=== PATIENT | female | born 1960 | race Asian ===

== ENCOUNTER 2019-04-26 15:40 | Emergency (ER) | payer OTHER ==
--- NOTE | 2019-04-26 15:52 | ED ---
Upper Extremity Pain - HPI Summary HPI Summary: 59 female presents to the emergency department this morning after falling on ice and landing on an out stretched hand. Pt endorses 4/10 pain to the left wrist which is made worse with movement. Pt states she has decreased range of motion due to pain but has full sensation of the hand. Pt is neruovascularly intact. Pt has not taken any medication prior to arrival. Pt does not take blood thinners. Pt denies fever, chest pain, abdominal pain, pain with urination , SOB, rash. Family hx and surgical hx noncontributory. - History of Current Complaint Chief Complaint: EDExtremityUpper Stated Complaint: FALL- POSS LEFT WRIST FRACTURE PER PT Time Seen by Provider: 04/26/19 15:45 Hx Obtained From: Patient Mechanism Of Injury: Fall From A Standing Position Onset/Duration: Started Hours Ago Timing: Constant Severity Initially: Moderate Severity Currently: Moderate Pain Location: Wrist Character: Aching Aggravating Factor(s): Movement, Lifting, Flexion, Extension, Internal/External Rotation, Abduction, Adduction, Twisting, Pulling Alleviating Factor(s): Rest, Elevation Associated Signs & Symptoms: Positive: Swelling, Bruising. Negative: Redness, Fever, Weakness, Numbness/Tingling, Chest Pain, SOB, Nausea, Vomiting - Allergies/Home Medications Allergies/Adverse Reactions: Allergies Allergy/AdvReac Type Severity Reaction Status Date / Time No Known Allergies Allergy Verified 04/26/19 16:38 PMH/Surg Hx/FS Hx/Imm Hx Infectious Disease History: No Infectious Disease History: Denies: Traveled Outside the [place] in Last 30 Days Review of Systems Constitutional: Negative Eyes: Negative ENT: Negative Cardiovascular: Negative Respiratory: Negative Gastrointestinal: Negative Genitourinary: Negative Positive: Arthralgia, Myalgia, Decreased ROM, Edema Negative: Rash Neurological: Negative Psychological: Normal All Other Systems Reviewed And Are Negative: Yes Physical Exam - Summary Physical Exam Summary: Pt is in no acute distress. gross deformity an ecchymosis is appreciated to the left wrist. ROM decreased to the left wrist due to pain. 2+ radial pulse with brisk cap refill, BL. Pt is neurovascularly intact. Triage Information Reviewed: Yes Vital Signs On Initial Exam: Initial Vitals Temp Pulse Resp BP Pulse Ox 97.9 F 80 14 157/94 96 04/26/19 15:44 04/26/19 15:44 04/26/19 15:44 04/26/19 15:44 04/26/19 15:44 Vital Signs Reviewed: Yes Appearance: Positive: Well-Appearing, No Pain Distress, Well-Nourished Skin: Positive: Warm, Skin Color Reflects Adequate Perfusion Head/Face: Positive: Normal Head/Face Inspection Eyes: Positive: EOMI, NITHIN ENT: Positive: Hearing grossly normal Respiratory/Lung Sounds: Positive: Clear to Auscultation, Breath Sounds Present Cardiovascular: Positive: RRR, S1, S2 Musculoskeletal: Positive: Edema Left Neurological: Positive: Sensory/Motor Intact, Alert, Oriented to Person Place, Time, Normal Gait, Facial Symmetry, Speech Normal Psychiatric: Positive: Normal, Affect/Mood Appropriate AVPU Assessment: Alert Procedures - Sedation Patient Received Moderate/Deep Sedation with Procedure: No - Splinting Left Upper Extremity Hand-Made Type: fiberglass Splint: sugar-tong Pre-Proc Neuro Vasc Exam: normal Post-Proc Neuro Vasc Exam: normal Splint Applied by Provider: [facility] - Vital Signs Vital Signs Temp Pulse Resp BP Pulse Ox 04/26/19 15:44 97.9 F 80 14 157/94 96 - Laboratory Lab Statement: Any lab studies that have been ordered have been reviewed, and results considered in the medical decision making process. Course/Dx - Course Course Of Treatment: Pt evaluated for wrist pain. Pt vitals stable. xray obtained which shows distal radius fracuture with dorsal angulation with fracture of the ulnar styloid. Pt was given 800mg ibuprofen and 5mg oxycodone for pain. A hematoma block was used with 5ml of 1% lidocaine w/o epi. Pt was placed in a finger trap and a sugar tong splint was applied with orthoglass. Post reduction xrays show persistant, yet reduced dorsal angulation. Pt neurovascularly intact before and after application of splint. Pt given prescription for 12 5-325 hydrocodone/acetaminophen and told to f/u with ortho in 3-5 days. pt agrees. - Diagnoses Differential Diagnosis/HQI/PQRI: Positive: Arthritis, Contusion, Fracture ( Closed), Hematoma, Laceration, Strain, Sprain Provider Diagnoses: Radial fracture Discharge ED - Sign-Out/Discharge Documenting (check all that apply): Patient Departure - Discharge Plan Condition: Stable Disposition: HOME Prescriptions: HYDROcodone/ACETAMIN 5-325 MG* [[place] 5-325 TAB*] 1 tab PO Q6H PRN #14 tab MDD 4 PRN Reason: Pain - Severe HYDROcodone/ACETAMIN 5-325 MG* [[place] 5-325 TAB*] 1 tab PO Q6H PRN #12 tab MDD 4 PRN Reason: Pain - Severe Patient Education Materials: Wrist Fracture in Adults (ED), R.I.C.E. Treatment (ED) Referrals: Aly Riojas MD [Medical Doctor] - 3 Days No Primary Care Phys,NOPCP [Primary Care Provider] - Additional Instructions: You were seen in the emergency department today and diagnosed left wrist fracture. We are placing a splint to help with healing of the bone until you' re seen by an orthopedic doctor. Please keep the splint dry and intact until you're seen by orthopedics. Please follow-up with the orthopedic doctor in 3-5 days for further evaluation and management. Please return to the emergency department immediately if you develop any new or worsening symptoms such as numbness, tingling, or fingers turning blue, increase in pain. You may take ibuprofen 600 mg every 6 hours as needed for pain. I have also sent a prescription of hydrocodone which may be taken as needed for pain not able to be managed by ibuprofen. Be sure to elevate your wrist especially when sleeping. - Billing Disposition and Condition Condition: STABLE Disposition: Home
[2019-04-26] MEDS ORDERED: Ibuprofen TAB* 400 MG PO ONE (16:00)
[2019-04-26] MEDS ORDERED: Lidocaine 1% INJ* 10 MG/ML 30 ML SDV INJ ONE (17:07)
[2019-04-26] MEDS ORDERED: oxyCODONE TAB* 5 MG TAB PO ONE (17:07)
[2019-04-26 18:25] VITALS: BP 130/86
== END 2019-04-26 18:21 | disposition home or self-care (01) ==
LOC: EDSEX → MERGE 15:40 → ED 15:40
DX: S52.572A Other intraarticular fracture of lower end of left radius, initial encounter for closed fracture (principal); W00.0XXA Fall on same level due to ice and snow, initial encounter; Y92.9 Unspecified place or not applicable
CPT/HCPCS: 99282; A9270-GY